=== PATIENT | male | born 1975 | race Hispanic/Latino ===

== ENCOUNTER → 2023-08-20 06:20 | Day surgery (SDC) | payer BC, SELFPAY ==
[2023-08-20 08:25] LABS: Glucose - Point of Care 115 mg/dl (70-99)
== END ==
LOC: GI 06:20
PROVIDERS: ATTENDING PHYSICIAN Internal Medicine Gastroenterology
DX: K51.919 Ulcerative colitis, unspecified with unspecified complications (principal); D12.3 Benign neoplasm of transverse colon; K62.89 Other specified diseases of anus and rectum; K64.0 First degree hemorrhoids
CPT/HCPCS: 45380; 88305; 82962